=== PATIENT | female | born 1985 | race Two or more races ===

== ENCOUNTER 2019-05-26 07:07 | Inpatient (IN) | payer OTHER ==
[2019-05-26] MEDS ORDERED: BUTORPHANOL TARTRATE 1 MG/ML VIAL IVPB ONE (08:34)
[2019-05-26] MEDS ORDERED: PROMETHAZINE HCL 25 MG/1 ML VIAL IVPB ONE (08:34)
[2019-05-26] MEDS: ELECTROLYTE-148 SOLN 1,000 ML IV SCH ×2 (08:35→12:45)
[2019-05-26] MEDS ORDERED: OXYTOCIN 30 UNITS in 0.9% NS 30 UNIT/500 ML INFUS.BAG IVPB ONE (08:35)
[2019-05-26] MEDS ORDERED: OXYTOCIN 30 UNITS in 0.9% NS 30 UNIT/500 ML INFUS.BAG IVPB SCH (08:45)
[2019-05-26 09:45] VITALS: BMI 28.1
[2019-05-26 10:22] LABS: BASO % 0.4 % (0-2.0); HEMATOCRIT 36.7 % (32.4-45.2); HEMOGLOBIN 12.4 GM/dL (10.7-15.3); MCH 30.6 pg (25.7-33.7); MCHC 33.7 g/dl (32.0-36.0); MEAN CELL VOLUME 90.8 fl (80-96); MEAN PLT VOLUME 10.6 fl (7.5-11.1); MONO % 7.3 % (3.8-10.2); NEUT % 74.3 % (42.8-82.8); PLATELET COUNT 165 K/MM3 (134-434); RBC 4.04 M/mm3 (3.60-5.2); RDW 13.6 % (11.6-15.6); WHITE BLOOD COUNT 11.6 K/mm3 (4.0-10.0)
[2019-05-26 10:38] LABS: INR 0.92 (0.83-1.09); PROTHROMBIN TIME (PATIENT) 10.8 SEC (9.7-13.0)
[2019-05-26 10:41] LABS: ACTIVATED PTT 26.2 SECONDS (25.2-36.5)
[2019-05-26] MEDS ORDERED: PROMETHAZINE HCL 25 MG/1 ML VIAL ONE (10:43)
[2019-05-26] MEDS ORDERED: BUTORPHANOL TARTRATE 1 MG/ML VIAL ONE ×2 (10:43)
[2019-05-26 10:55] LABS: BLOOD UREA NITROGEN 14.4 mg/dL (7-18); CALCIUM 9.8 mg/dL (8.5-10.1); CREATININE 0.7 mg/dL (0.55-1.3); POTASSIUM 4.4 mmol/L (3.5-5.1)
[2019-05-26] MEDS ORDERED: FENTANYL/BUPIVACAINE/NS/PF - PCEA - 50 ML DISP.SYRIN EP ONE (11:48)
[2019-05-26] MEDS ORDERED: LIDO 2%/EPI 1:200000 PRESRVFRE (20 ML SDVIAL) ONE (12:29)
[2019-05-26] MEDS: FENTANYL/BUPIVACAINE/NS/PF - PCEA - 50 ML DISP.SYRIN EP SCH (12:40)
[2019-05-26] MEDS ORDERED: NALOXONE HCL 0.4 MG/ML VIAL IVPUSH PRN (12:56)
[2019-05-26] MEDS ORDERED: OXYTOCIN 20 UNITS in 0.9% NS 20 UNIT/1,000 ML INFUS.BAG IV ONE ×2 (13:46→18:06)
[2019-05-26] MEDS ORDERED: LIDOCAINE HCL 1% PRESERVATIVE FREE - 30ML VIAL ONE (15:52)
[2019-05-26] MEDS: OXYTOCIN 20 UNITS in 0.9% NS 20 UNIT/1,000 ML INFUS.BAG IV SCH ×2 (16:45→18:00)
[2019-05-26] MEDS ORDERED: WITCH HAZEL 50% (TUCKS) 40 PAD/JAR PAD TP PRN (17:13)
[2019-05-26] MEDS ORDERED: BISACODYL 10 MG SUPP.RECT RC PRN (17:13)
[2019-05-26] MEDS ORDERED: oxyCODONE HCL 5 MG TABLET PO PRN (17:13)
[2019-05-26] MEDS ORDERED: BENZOCAINE 28 GM HEMORRHOIDAL OINTMENT TP PRN (17:13)
[2019-05-26] MEDS ORDERED: BENZOCAINE 20% 57 GM BOTTLE TP PRN (17:13)
[2019-05-26] MEDS ORDERED: METHYLERGONOVINE MALEATE 0.2 MG/1 ML AMP IM PRN (17:13)
--- NOTE | 2019-05-26 17:18 | HP ---
Past Medical History - Admission Chief Complaint: 41 weeks for indcution History Source: Patient Limitations to Obtaining History: No Limitations - Past Medical History FINANCIAL INTERNSHIP: No: Alzheimer's, CVA, Dementia, Migraine, Multiple Sclerosis, Peripheral Neuropathy, Parkinson's, Seizure, Syncope, TIA, Vertigo, Other Cardiovascular: No: AFIB, Aneurysm, Aortic Insufficiency, Aortic Stenosis, CAD, CHF, Deep Vein Thrombosis, HTN, Hyperlipdemia, AL, Mitral Insufficiency, Mitral Stenosis, Murmur, Pulmonary Hypertension, Other Pulmonary: No: Asthma, Bronchitis, Cancer, COPD, O2 Dependent, Pneumonia, Previously Intubated, Pulmonary Embolus, Pulmonary Fibrosis, Sleep Apnea, Other Gastrointestinal: No: Ascites, Cancer, Constipation, Crohn's Disease, Diverticulitis, Diverticulosis, Esophageal Varices, Gastritis, GERD, GI Bleed, Hemorrhoids, Hiatal Hernia, Inflamatory Bowel Disease, Irritable Bowel Disease, Pancreatitis, Peptic Ulcer Disease, Ulcerative Colitis, Other Hepatobiliary: No: Cirrhosis, Cholelithiasis, Cholecystitis, Choledocholithiasis , Hepatitis A, Hepatitis B, Hepatitis C, Other Renal/: No: Renal Failure, Renal Inusuff, BPH, Cancer, Hematuria, Hemodialysis , Neurogenic Bladder, Renal Calculi, UTI, Other Reproductive: No: Ectopic , Endometriosis, Fibroids, PID, Polycystic Ovary Syndrome, Postmenopausal, Other ...: 1 ...Para: 0 ...Term: 0 ...: 0 ...Spon : 0 ...Induced : 0 ...Multiple Gestation: 0 ...LMP: 08/13/18 ... Weeks Gestation by Dates: 40.6 ...EDC by Dates: 05/20/19 Heme/Onc: No: Anemia, B12 Deficiency, Bleeding Disorder, Cancer, Current Chemotherapy, Current Radiation Therapy, Hemochromatosis, Hypercoaguable State, Myeloproliferative Synd, Sickle Cell Disease, Sickle Cell Trait, Thrombocytopenia, Other Infectious Disease: No: AIDS, C-Diff, Herpes Zoster, HIV, MRSA, STD's, Tuberculosis, VREF, Other Musculoskeletal: No: Bursitis, Chronic low back pain, Hemiparesis, Hemiplegia, Osteoarthritis, Paraplegia, Other Rheumatology: No: Fibromyalgia, Gout, Lupus, Rheumatoid Arthritis, Sarcoidosis, Vasculitis, Other ENT: No: Allergic Rhinitis, Sinusitis, Other Endocrine: No: Boston's Disease, Lynnette's Disease, Diabetes Insipidus, Diabetes Mellitus, Hyperparathyroidism, Hyperthyroidism, Hypothyroidism, Osteopenia, SIADH, Other Dermatology: No: Basal Cell, Cellulitis, Eczema, Melanoma, Psoriasis, Squamous Cell, Other - Past Surgical History Past Surgical History: No: None, AAA Repair, AICD, Amputation, Appendectomy, Arthrosocopy, AV Fistula/Graft, Bariatric Surgery, Breast Biopsy, Bypass, CABG, Carotid Endarterectomy, Cataract Removal, Cholecystectomy, Colectomy, Colonoscopy, Colostomy, Craniotomy, , Cystectomy, Hernia Repair, Hysterectomy, Ileal Conduit, Ileosotomy, Joint Replacement, Kidney Transplant, Laminectomy, Liver Transplant, Mastectomy, Nephrectomy, Oopherectomy, Orchiectomy, Permanent Pacemaker, Prostatectomy, Splenectomy, Stent, Thoracotomy , TURP, Tonsillectomy, Tubal Ligation, Upper Endoscopy, Valve Replacement, Vasectomy, Vein Stripping/Ligation Hx Myomectomy: No Hx Transabdominal Cerclage: No - Advance Directives Advance Directives: Yes: Living Will - Smoking History Smoking history: Never smoked Have you smoked in the past 12 months: No - Alcohol/Substance Use Hx Alcohol Use: No History of Substance Use: reports: None - Social History Usual Living Arrangement: No: Alone, With Spouse, With Parent, With Significant Other, With Child, Assisted Living, Care Home, Other ADL: Independent History of Recent Travel: No Home Medications - Allergies Allergies/Adverse Reactions: Allergies Allergy/AdvReac Type Severity Reaction Status Date / Time No Known Allergies Allergy Verified 05/26/19 10:03 - Home Medications Home Medications: Ambulatory Orders Vitamins (Sj[facility]) - 1 tab PO DAILY 05/26/19 Family Disease History - Family Disease History Family History: Denies Review of Systems - Review of Systems Constitutional: reports: No Symptoms Eyes: reports: No Symptoms HENT: reports: No Symptoms Neck: reports: No Symptoms Cardiovascular: reports: No Symptoms Respiratory: reports: No Symptoms Gastrointestinal: reports: No Symptoms Genitourinary: reports: No Symptoms Breasts: reports: No Symptoms Reported Musculoskeletal: reports: No Symptoms Integumentary: reports: No Symptoms Neurological: reports: No Symptoms Endocrine: reports: No Symptoms Hematology/Lymphatic: reports: No Symptoms Psychiatric: reports: No Symptoms Physical Exam - Maternity Vital Signs: Vital Signs Temperature 98.1 F 05/26/19 13:54 Pulse Rate 107 H 05/26/19 16:00 Respiratory Rate 20 05/26/19 16:00 Blood Pressure 127/71 05/26/19 16:00 O2 Sat by Pulse Oximetry (%) 99 05/26/19 16:00 Constitutional: Yes: Well Nourished, No Distress, Calm Eyes: Yes: WNL, Conjunctiva Clear, EOM Intact HENT: Yes: WNL, Atraumatic, Normocephalic Neck: Yes: WNL, Supple, Trachea Midline Cardiovascular: Yes: WNL, Regular Rate and Rhythm Lungs: Clear to auscultation Breast(s): Yes: WNL - Abdominal Exam/OB Fundal Height: 42 Number of Fetuses: Single Presentation: Vertex Contractions: Yes Regularity: Irregular Intensity: Mild Monitor Mode: External Heart Rate Location: Q Accelerations: Uniform Decelerations: None - Vaginal Exam/OB Vaginal Bleediing: No Speculum Exam: No Amniotic Membrane Status: Intact Presentation: Vertex/Position Station: -2 - Physical Exam Musculoskeletal: Yes: WNL Extremities: Yes: WNL Edema: Yes Edema: LUE: 1+, RUE: 1+, LLE: 1+, RLE: 1+ Integumentary: Yes: WNL Deep Tendon Reflex Grade: Normal +2 ...Motor Strength: WNL Psychiatric: Yes: WNL, Alert, Oriented - Labs Lab Results: CBC, BMP 05/26/19 09:35 05/26/19 09:35 Hemorrhage Risk Assessment - Risk Factors Risk Score: 0 Risk Level: Low Risk Assessment/Plan for pitocin
--- NOTE | 2019-05-26 17:19 | PN ---
Progress Note (short form) - Note Progress Note: 11 am 5cm uc q 3 min, reactive, asking for epidural,
--- NOTE | 2019-05-26 17:20 | PN ---
Progress Note (short form) - Note Progress Note: 1 pm 9cm, 0 station, comfort w epidural, pushing soon
--- NOTE | 2019-05-26 17:21 | PN ---
Delivery - Delivery Type of Anesthesia: Local, Epidural Episiotomy/Laceration: Right Mediolateral EBL (cc): 350 Delivery, Single - Stages of Labor Date 1st Stage Initiatied: 05/26/19 Time 1st Stage Initiated: 09:00 Date 2nd Stage Initiated: 05/26/19 Time 2nd Stage Initiated: 16:15 Date of Delivery: 05/26/19 Time of Delivery: 16:25 Time Placenta Delivered: 16:43 Placenta: Yes: Spontaneous - Condition of Equipment Application Specialist/Hot Top Liner Helper Present: No Infant Gender: Male Position: Right, OA Total Hours ROM (Hrs/Mins): 8hrs 18min - Feeding Plan Initial Plan: Exclusive throughout hospitalization Benefits of Exclusively reinforced: Yes Remarks - Remarks Remarks: no complications
[2019-05-27] MEDS: ACETAMINOPHEN 325 MG TABLET (FP) PO PRN ×2 (00:17→19:20)
[2019-05-27] MEDS: IBUPROFEN 600 MG TABLET (FP) PO PRN ×2 (00:18→19:20)
[2019-05-27] MEDS ORDERED: OXYTOCIN 20 UNITS in 0.9% NS 20 UNIT/1,000 ML INFUS.BAG IV ONE (00:41)
[2019-05-27 08:27] LABS: BASO % 0.1 % (0-2.0); EOS % 0.2 % (0-4.5); HEMATOCRIT 27.3 % (32.4-45.2); HEMOGLOBIN 9.3 GM/dL (10.7-15.3); LYMPH % 12.4 % (8-40); MCH 30.7 pg (25.7-33.7); MCHC 33.9 g/dl (32.0-36.0); MEAN CELL VOLUME 90.6 fl (80-96); MEAN PLT VOLUME 10.2 fl (7.5-11.1); MONO % 5.8 % (3.8-10.2); NEUT % 81.5 % (42.8-82.8); RBC 3.02 M/mm3 (3.60-5.2); RDW 13.4 % (11.6-15.6); WHITE BLOOD COUNT 17.5 K/mm3 (4.0-10.0)
[2019-05-27 08:47] LABS: PLATELET COUNT 124 K/MM3 (134-434)
[2019-05-27] MEDS ORDERED: DIPHTH,PERTUSS(ACELL),TET 0.5 ML DISP.SYRIN IM ONE (10:00)
[2019-05-27] MEDS: FENTANYL/BUPIVACAINE/NS/PF - PCEA - 50 ML DISP.SYRIN EP SCH (13:03)
[2019-05-27 21:12] VITALS: TEMP 98.1
[2019-05-27] MEDS ORDERED: SENNOSIDES/DOCUSATE COMBO (SENNA PLUS) TABLET (UD) PO PRN (22:00)
--- NOTE | 2019-05-28 07:51 | PN ---
Post Progress Note - Subjective Subjective: Patient without acute complaints. Reports tolerating oral intake without nausea or vomiting. Ambulating without dizziness. Denies fevers or chills. Pain well controlled with oral pain medication. without difficulty. Passing flatus. Post Day: 1 Type of Delivery: Vital Signs: Vital Signs Temperature 98.1 F 05/27/19 21:11 Pulse Rate 99 H 05/27/19 21:11 Respiratory Rate 20 05/27/19 21:11 Blood Pressure 122/73 05/27/19 21:11 O2 Sat by Pulse Oximetry (%) 99 05/26/19 18:00 Breast Exam: Yes: Soft Uterus: Yes: Fundus Firm, Fundus below umbilicus Abdomen/GI: Yes: Abdomen soft, Passing flatus, Tolerating PO. No: Abdominal Distention, Tender Lochia: Yes: Rubra Lochia, amount: Moderate Extremities: Yes: Calves non-tender, Edema (trace) Activity: Ambulating - Labs Labs: CBC WBC 17.5 K/mm3 (4.0-10.0) H 05/27/19 07:10 RBC 3.02 M/mm3 (3.60-5.2) L 05/27/19 07:10 Hgb 9.3 GM/dL (10.7-15.3) L 05/27/19 07:10 Hct 27.3 % (32.4-45.2) L D 05/27/19 07:10 MCV 90.6 fl (80-96) 05/27/19 07:10 MCH 30.7 pg (25.7-33.7) 05/27/19 07:10 MCHC 33.9 g/dl (32.0-36.0) 05/27/19 07:10 RDW 13.4 % (11.6-15.6) 05/27/19 07:10 Plt Count 124 K/MM3 (134-434) L D 05/27/19 07:10 MPV 10.2 fl (7.5-11.1) 05/27/19 07:10 Absolute Neuts (auto) 14.3 K/mm3 (1.5-8.0) H 05/27/19 07:10 Neutrophils % 81.5 % (42.8-82.8) 05/27/19 07:10 Lymphocytes % 12.4 % (8-40) D 05/27/19 07:10 Monocytes % 5.8 % (3.8-10.2) 05/27/19 07:10 Eosinophils % 0.2 % (0-4.5) 05/27/19 07:10 Basophils % 0.1 % (0-2.0) 05/27/19 07:10 Nucleated RBC % 0 % (0-0) 05/27/19 07:10 Assessment/Plan 33 yo PPD #2 s/p , afebrile, vital signs stable, doing well 1. Patient stable for discharge home today. 2. Patient encouraged to contact MD for: - Severe pain not controlled by oral pain medication - Fevers or chills - Nausea or vomiting, intolerance of oral intake 3. Patient to follow up in office in 4-6 weeks for visit
[2019-05-28 08:51] VITALS: BP 136/82; PULSE 97
== END 2019-05-28 11:30 | disposition home or self-care (01) | DRG 560 ==
LOC: JLDR 07:07 → J3W 18:00
PROVIDERS: ADMIT Obstetrics & Gynecology; ATTEND Obstetrics & Gynecology
PROC: 10E0XZZ Delivery of Products of Conception, External Approach (ICD-10-PCS; principal; 2019-05-26)
PROC: 0W8NXZZ Division of Female Perineum, External Approach (ICD-10-PCS; 2019-05-26)
DX: O48.0 Post-term pregnancy (principal); Z3A.41 41 weeks gestation of pregnancy; Z37.0 Single live birth
CPT/HCPCS: 36415; 59409; 80048; 85025; 85610; 85730; 86593; 86850; 86900; 86901; 87389; 90715

== ENCOUNTER 2021-07-11 01:05 | Inpatient (IN) | payer OTHER ==
[2021-07-11] MEDS ORDERED: ELECTROLYTE-148 SOLN 1,000 ML IV SCH (01:50)
[2021-07-11] MEDS ORDERED: AMPICILLIN - 2 GM in SODIUM CHLORIDE 100 ML IVPB ONE (02:00)
[2021-07-11 02:18] LABS: BASO % 0.6 % (0-2.0); EOS % 0.8 % (0-4.5); HEMATOCRIT 32.8 % (32.4-45.2); HEMOGLOBIN 11.1 GM/dL (10.7-15.3); LYMPH % 17.8 % (8-40); MCH 29.7 pg (25.7-33.7); MEAN CELL VOLUME 87.3 fl (80-96); MEAN PLT VOLUME 9.3 fl (7.5-11.1); MONO % 7.6 % (3.8-10.2); NEUT % 73.2 % (42.8-82.8); PLATELET COUNT 172 10^3/uL (134-434); RBC 3.75 M/mm3 (3.60-5.2); RDW 13.5 % (11.6-15.6); WHITE BLOOD COUNT 10.7 K/mm3 (4.0-10.0)
[2021-07-11] MEDS ORDERED: AMPICILLIN SODIUM 2 GM VIAL ONE (02:23)
[2021-07-11] MEDS ORDERED: BUTORPHANOL TARTRATE 1 MG/ML VIAL IVPB ONE ×2 (02:30→03:07)
[2021-07-11] MEDS ORDERED: PROMETHAZINE HCL 25 MG/1 ML VIAL IVPB ONE ×2 (02:30→03:07)
[2021-07-11 02:31] LABS: INR 0.87 (0.83-1.09); PROTHROMBIN TIME (PATIENT) 10.7 SEC (9.7-13.0)
[2021-07-11 02:38] VITALS: BMI 25.7
[2021-07-11 02:39] LABS: CALCIUM 8.4 mg/dL (8.5-10.1)
[2021-07-11 02:40] LABS: BLOOD UREA NITROGEN 12.2 mg/dL (7-18)
[2021-07-11 02:43] LABS: CREATININE 0.6 mg/dL (0.55-1.3)
[2021-07-11] MEDS ORDERED: OXYTOCIN 20 UNITS in 0.9% NS 20 UNIT/1,000 ML INFUS.BAG IV ONE ×2 (02:52→04:33)
[2021-07-11] MEDS ORDERED: BUTORPHANOL TARTRATE 1 MG/ML VIAL ONE (03:05)
[2021-07-11] MEDS ORDERED: PROMETHAZINE HCL 25 MG/1 ML VIAL ONE (03:05)
[2021-07-11] MEDS ORDERED: DEXTROSE 5%-LACTATED RINGERS 1,000 ML IV SCH (03:30)
[2021-07-11] MEDS ORDERED: METHYLERGONOVINE MALEATE 0.2 MG/1 ML AMP IM PRN (03:31)
[2021-07-11] MEDS ORDERED: BENZOCAINE 28 GM HEMORRHOIDAL OINTMENT TP PRN (03:31)
[2021-07-11] MEDS ORDERED: WITCH HAZEL 50% (TUCKS) 40 PAD/JAR PAD TP PRN (03:31)
[2021-07-11] MEDS ORDERED: ACETAMINOPHEN 325 MG TABLET (FP) PO PRN (03:31)
[2021-07-11] MEDS ORDERED: BISACODYL 10 MG SUPP.RECT RC PRN (03:31)
[2021-07-11] MEDS ORDERED: oxyCODONE HCL 5 MG TABLET PO PRN (03:31)
[2021-07-11] MEDS ORDERED: BENZOCAINE 20% 57 GM BOTTLE TP PRN (03:31)
[2021-07-11 03:36] LABS: HIV INTERPRETATION NEGATIVE (NEGATIVE)
[2021-07-11] MEDS ORDERED: OXYTOCIN 20 UNITS in 0.9% NS 20 UNIT/1,000 ML INFUS.BAG IV SCH (03:45)
[2021-07-11] MEDS ORDERED: AMPICILLIN - 1 GM in SODIUM CHLORIDE 100 ML IVPB SCH (06:00)
[2021-07-11] MEDS: PRENATAL VITAMINS W/ FOLIC ACID TABLET (FP) PO SCH (09:23)
[2021-07-11] MEDS: IBUPROFEN 600 MG TABLET (FP) PO PRN ×2 (09:23→19:56)
[2021-07-12] MEDS: IBUPROFEN 600 MG TABLET (FP) PO PRN ×2 (04:05→19:18)
[2021-07-12 07:50] LABS: BASO % 0.5 % (0-2.0); EOS % 1.7 % (0-4.5); HEMATOCRIT 33.4 % (32.4-45.2); HEMOGLOBIN 11.3 GM/dL (10.7-15.3); LYMPH % 24.6 % (8-40); MCH 30.1 pg (25.7-33.7); MEAN CELL VOLUME 88.6 fl (80-96); MEAN PLT VOLUME 9.6 fl (7.5-11.1); MONO % 6.3 % (3.8-10.2); NEUT % 66.9 % (42.8-82.8); PLATELET COUNT 165 10^3/uL (134-434); RBC 3.77 M/mm3 (3.60-5.2); RDW 13.7 % (11.6-15.6); WHITE BLOOD COUNT 9.9 K/mm3 (4.0-10.0)
[2021-07-12] MEDS: PRENATAL VITAMINS W/ FOLIC ACID TABLET (FP) PO SCH (09:26)
[2021-07-12] MEDS ORDERED: SENNOSIDES/DOCUSATE COMBO (SENNA PLUS) TABLET (UD) PO PRN (22:00)
[2021-07-13] MEDS: IBUPROFEN 600 MG TABLET (FP) PO PRN (10:39)
[2021-07-13 11:05] VITALS: BP 120/82; PULSE 88; TEMP 97.8
[2021-07-13] MEDS: PRENATAL VITAMINS W/ FOLIC ACID TABLET (FP) PO SCH (11:29)
== END 2021-07-13 12:50 | disposition home or self-care (01) | DRG 560 ==
LOC: JDEL 01:05 → JLDR 01:35 → J3W 04:56
PROVIDERS: ADMIT Obstetrics & Gynecology; ATTEND Obstetrics & Gynecology
PROC: 10E0XZZ Delivery of Products of Conception, External Approach (ICD-10-PCS; principal; 2021-07-11)
DX: O48.0 Post-term pregnancy (principal); O70.0 First degree perineal laceration during delivery; Z3A.41 41 weeks gestation of pregnancy; Z37.0 Single live birth
CPT/HCPCS: 36415; 59409; 80048; 85025; 85610; 85730; 86780; 86850; 86900; 86901; 87389